=== PATIENT | male | born 1985 | race Caucasian/White ===

== ENCOUNTER 2025-03-27 22:54 | Emergency (ER) | payer OTHER, SELFPAY ==
--- NOTE | ~2025-03-27 | XR_ITS ---
EXAM: XR ankle RT 2V, XR tibia fibula RT 2V DATE: 03/27/2025 23:23 HISTORY: Poss fx . COMPARISON: None available. FINDINGS: Normal mineralization. Oblique fracture of the distal right fibula with lateral and stockroom associate ior displacement, extending to the level of the joint line (Barbour type B). Minimally comminuted mostl y transverse fracture of the medial malleolus with posterior displacement. Comminuted appearing poste rior malleolus fracture with posterior displacement. The talus is posteriorly displaced relative to t he anterior portion of the tibial plafond and remains associated with the posterior malleolus fragmen t, also likely with a component of lateral displacement. Possible small ossific fragment at the fibul ar head which is obscured during anatomy. No lytic or blastic lesion. Joint spaces are maintained. No erosion or periosteal change. Mild soft tissue swelling about the ankle. IMPRESSION: Trimalleolar right ankle fracture with posterolateral tibiotalar dislocation. Possible fi bular head fracture, recommend dedicated radiographs of the knee. Reviewed, dictated and finalized at location [facility]. IMPRESSION: Trimalleolar right ankle fracture with posterolateral tibiotalar di slocation. Possible fibular head fracture, recommend dedicated radiographs of t he knee.
--- NOTE | ~2025-03-27 | XR_ITS ---
Right ankle Technique: AP, oblique, and lateral views were obtained. Clinical History: Post reduction COMPARISON: 03/27/2025 Findings: Acute trimalleolar fractures are again present, involving the distal fibular shaft, distal tibia/medial malleolus, and posterior malleolus. Osseous alignment of the tibiotalar joint is markedl y improved following closed reduction. There is persistent mild displacement of the fibular fracture and lateral view. Soft tissues are otherwise unremarkable. Impression: Status post closed reduction of acute trimalleolar fractures. Osseous alignment at the tibiotalar radha nt is markedly improved from prior exam. Reviewed, dictated and finalized at location . Impression: Status post closed reduction of acute trimalleolar fractures. Osseous alignment at the tibiotalar joint is markedly improved from prior exam.
--- NOTE | ~2025-03-27 | XR_ITS ---
Right Knee Technique: AP, lateral, and oblique views were obtained. Clinical History: Fracture Findings: No fracture or dislocation is seen. Osseous alignment is anatomic. Joint spaces are preserv ed without degenerative or erosive change. Soft tissues are unremarkable. No joint effusion is seen. Impression: Unremarkable right knee radiographs. Reviewed, dictated and finalized at [facility]. Impression: Unremarkable right knee radiographs.
[2025-03-27 23:01] VITALS: BP 143/81; PULSE 116; RESP 17; TEMP 36.5; O2SAT 97
[2025-03-28] MEDS: fentaNYL CITRATE INJ (*CRX) 100 MCG/2 ML VIAL 50 MCG IV PUSH (00:14)
--- NOTE | 2025-03-28 00:23 | ED_ITS ---
HPI - Extremity Injury (Lower) General Chief Complaint: Extremity Injury, Lower Stated Complaint: Injury right ankle Time Seen by Provider: 03/27/25 23:40 Source: patient and other Mode of arrival: ambulatory Limitations: intoxication History of Present Illness HPI Narrative: Patient presents with obvious right ankle injury/deformity. Patient was playing/running with son when he stepped in a hole and tripped, twisting ankle in the process. Admits to alcohol. Related Data Allergies Allergy/AdvReac Type Severity Reaction Status Date / Time No Known Allergies Allergy Unverified 03/27/25 22:55 PMFSH Social History Social History Social History: Has a son Alcohol intake: current Exam 2 Narrative: GENERAL: well-nourished HEAD: Normocephalic, atraumatic. EYES: Non injected, non icteric ENT: Nares clear, no rhinorrhea or epistaxis. Gross auditory acuity intact. NECK: Supple. No meningismus. CHEST: Speaking in full sentences. No respiratory distress. HEART: Regular rate and rhythm. . ABDOMEN: Soft, nondistended. No rigidity or guarding. Not peritoneal EXTREMITIES: Ecchymosis along posterior aspect of right ankle. Obvious right ankle deformity. Palpable DP pulse. No tenderness to palpation of proximal tibia/fibula. SKIN: Warm, dry. NEURO: No focal deficits. Alert and oriented. Answering questions. Slurred speech PSYCH:congruent mood and affect. Course Vital Signs Vital signs: Vital Signs Temperature 97.7 F 03/27/25 23:01 Pulse Rate 116 H 03/27/25 23:01 Respiratory Rate 17 03/27/25 23:01 Blood Pressure 143/81 H 03/27/25 23:01 Pulse Oximetry 97 03/27/25 23:01 Oxygen Delivery Room Air 03/27/25 23:01 Temperature 97.7 F 03/27/25 23:01 Pulse Rate 99 03/28/25 05:41 Respiratory Rate 18 03/28/25 05:41 Blood Pressure 129/69 03/28/25 05:41 Pulse Oximetry 98 03/28/25 05:41 Oxygen Delivery Room Air 03/27/25 23:01 Procedures Orthopedic Joint Reduction Joint #1: Orthopedic Joint Reduction Date: 03/28/25 Time Out Performed: Yes Side: right Joint Reduction Location: ankle Analgesia: other (combination IV opiates and benzodiazepine) Pre-Procedure Neuro Vascular Exam: normal Local Anesthesia: none Technique used: traction/counter-traction and direct manipulation Post-reduction neuro exam: intact Post-reduction vascular: intact Post Reduction X-Ray Obtained: Yes Post Reduction X-Ray Results: reduced Splint Applied: Yes Patient Tolerated Procedure: well and other (patient intoxicated; alert but not consistently following commands (e.g. to hold still after post reduction so he does move ankle requiring direct manipulation and near continuous holding of joint as obtain images) Orthopedic Splinting/Casting Injury #1: Splinting/Casting Date: 03/28/25 Side: right Lower Extremity Injury Location: ankle Lower Extremity Immobilizer: posterior splint and stirrup splint Splint: customized in ED (posterior with stirrup) Pre-Procedure Neuro Vascular Exam: normal Post-Procedure Neuro Vascular Exam: normal Other Orthopedic Equipment: crutches MDM - Extremity Injury (Lower) MDM Narrative Medical decision making narrative: Patient presents with obvious right ankle deformity after tripping in a hole while running outside. In the emergency department he is afebrile with vital signs notable for tachycardia and mild hypertension. Fentanyl ordered for pain. Intoxicated, alc >300. Patient keeps asking if it's a bad sprain. Repeatedly has to be told that it is both fractured and dislocated. Patient had become agitated requiring security while I was seeing another patient pre-reduction, apologizes. Patient given a dose of Dialudid and a benzodiazepine for anaglesia and anxiolysis and joint reduction performed as above. I did discuss patient with on-call orthopedic surgeon Dr Addison who notes that the extent of the fracture posteriorly appears significant and for this reason because this may require alternative surgical approach that is not within his scope, he would recommend that patient be seen by tertiary care trauma. Patient given referral to [facility]; advised to call to make an appointment. Provided disc with images. RN performed crutch training with patient once he is more sober, pain better under control. Patient has as sober ride. Patient provided Rx for analgesic meds including opiates. Differential Diagnosis Differential diagnosis: Likely ankle sprain and strain and ankle fracture Lab Data Attestation: I reviewed the patient's lab results. 03/28/25 00:50 03/28/25 00:50 Labs: Lab Results 06/03/25 Range/Units 00:50 WBC 7.1 (4.5-10.0) K/mm3 RBC 4.24 L (4.6-6.20) M/mm3 Hgb 14.4 (14.0-18.0) g/dL Hct 41.5 L (42.0-52.0) % MCV 97.9 (80-100) fl MCH 34.0 (26-34) pg MCHC 34.7 (32-36) g/dl RDW 12.9 (11.5-14.5) % Plt Count 202 (150-375) k/mm3 MPV 10.9 H (7.4-10.4) fl Immature Gran % (Auto) 0.4 (0-0.5) % Neut % (Auto) 55.6 (45.5-73.1) % Lymph % (Auto) 32.2 (18.3-44.2) % [place] % (Auto) 9.2 H (2.6-8.5) % Eos % (Auto) 2.0 (0-4.4) % Baso % (Auto) 0.6 (0.2-1.2) % Lymph # (Auto) 2.28 (0.9-3.2) K/mm3 [place] # (Auto) 0.7 H (0.1-0.6) K/mm3 Eos # (Auto) 0.1 (0-0.3) K/mm3 Baso # (Auto) 0.0 (0.0-0.1) K/mm3 Abs Immat Gran (auto) 0.03 (0.00-0.031) K/mm3 Absolute Neuts (auto) 3.9 (1.3-6.7) K/mm3 Absolute Nucleated RBC 0.000 (0.0-0.012) K/mm3 Nucleated RBC % 0.0 (0.0-0.2) % PT 12.2 (11.1-14.7) Seconds INR 0.9 APTT 23.4 (22.3-36.8) Seconds Sodium 143 (137-145) mmol/L Potassium 4.4 (3.4-5.0) mmol/L Chloride 110 H (98-107) mmol/L Carbon Dioxide 23 (22-30) mmol/L Anion Gap 10 (4-12) mmol/L BUN 20 (9-20) mg/dL Creatinine 1.04 (0.7-1.3) mg/dL Estim Creat Clear Calc 104 ml/min Estimated GFR > 60 (59 - ) Glucose 115 H (65-110) mg/dL Calcium 8.5 (8.4-10.2) mg/dL Ethyl Alcohol 323 H* (<10) mg/dL Imaging Data Radiologist's impression: Impressions Ankle X-Ray 03/27/25 23:44 IMPRESSION: Trimalleolar right ankle fracture with posterolateral tibiotalar dislocation. Possible fibular head fracture, recommend dedicated radiographs of the knee. Tibia/Fibula X-Ray 03/27/25 23:44 IMPRESSION: Trimalleolar right ankle fracture with posterolateral tibiotalar dislocation. Possible fibular head fracture, recommend dedicated radiographs of the knee. XRay Knee Stat Rad: No acute osseous finding. Consider CT if there is further concern. Post reduction XR Ankle 2 views: Reduced trimalleolar fracture, no tibiotalar dislocation. Discharge Plan Discharge Clinical Impression: Trimalleolar fracture of ankle, closed, Ankle dislocation, Alcohol intoxication with blood alcohol level greater than 0.3 Patient Disposition: Home Condition: Stable Instructions: Antibiotic Form, Ankle Fracture (ED), Crutch Instructions (ED), Narcotic Safety (ED), Alcohol Intoxication (DC), Ankle Dislocation (ED) Additional Instructions: As we discussed, the dislocated ankle joint was reduced (put back in place) but the severity of the remaining ankle bone fractures does mean that you should follow up with the Orthopedic surgery specialists at the trauma clinic through [facility]/Javier below. Call today to see when a follow up appointment should be made for. It is safe to take 4000 mg per day of acetaminophen/Tylenol for pain. For breakthrough pain, a narcotic/opioid medication has also been prescribed. Return to the emergency department any new worsening or unmanaged symptoms. 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
[2025-03-28 00:44] VITALS: PULSE 120; RESP 20; O2SAT 93
[2025-03-28 01:02] LABS: Basophils Percent Auto 0.6 % (0.2-1.2); Eosinophils Absolute Auto 0.1 K/mm3 (0-0.3); Hematocrit 41.5 % (42.0-52.0); Hemoglobin 14.4 g/dL (14.0-18.0); Immature Granulocyte Absolute 0.03 K/mm3 (0.00-0.031); Immature Granulocyte Percent A 0.4 % (0-0.5); Lymphocytes Absolute Auto 2.28 K/mm3 (0.9-3.2); Lymphocytes Percent Auto 32.2 % (18.3-44.2); Mean Corpuscular HGB Conc 34.7 g/dl (32-36); Mean Corpuscular Volume 97.9 fl (80-100); Mean Platelet Volume 10.9 fl (7.4-10.4); Monocytes Absolute Auto 0.7 K/mm3 (0.1-0.6); Monocytes Percent Auto 9.2 % (2.6-8.5); Neutrophils Absolute Auto 3.9 K/mm3 (1.3-6.7); Neutrophils Percent Auto 55.6 % (45.5-73.1); Platelet Count Result 202 k/mm3 (150-375); Red Blood Count 4.24 M/mm3 (4.6-6.20); Red Cell Distribution Width 12.9 % (11.5-14.5); White Blood Count 7.1 K/mm3 (4.5-10.0)
[2025-03-28 01:14] LABS: Anion Gap 10 mmol/L (4-12); Blood Urea Nitrogen 20 mg/dL (9-20); Calcium 8.5 mg/dL (8.4-10.2); Carbon Dioxide 23 mmol/L (22-30); Chloride 110 mmol/L (98-107); Estimated CRCL calculation 104 ml/min; Estimated Glomerular Filt Rate > 60; Glucose 115 mg/dL (65-110); Potassium 4.4 mmol/L (3.4-5.0); Sodium 143 mmol/L (137-145)
[2025-03-28 01:26] LABS: Ethanol 323 mg/dL (<10)
[2025-03-28 01:52] LABS: INR 0.9; Prothrombin Time 12.2 Seconds (11.1-14.7)
[2025-03-28 01:53] LABS: Partial Thromboplastin Time 23.4 Seconds (22.3-36.8)
[2025-03-28] MEDS: SODIUM CHLORIDE 0.9% IV 1,000 ML 999 ML IV CONT (02:18)
[2025-03-28] MEDS: HYDROmorphone HCL INJ (*CRX) 2 MG/ML VIAL 1 MG IV PUSH ×2 (02:19→04:35)
[2025-03-28] MEDS: diazePAM INJ (*CRX) 10 MG/2 ML SYRINGE 5 MG IV PUSH (02:20)
[2025-03-28 02:23] VITALS: PULSE 114; RESP 14; O2SAT 97
--- NOTE | 2025-03-28 02:24 | PC.NURSE ---
Per MD Alex we are going to do a reduction of pt ankle dislocation without sedation. This Rn, MD Alex, and techs Madison dugan are all at bedside. NC o2 ready at bedside if needed. Pt was given 0.5 ml of dilaudid and 1 ml of valium via IV along with fluids. Radiology at bedside. Techs doing short leg posterior splint at this time with ankle in place per radiology confirmation. Pt itals are 107 HR, 17 respirations, and 95% on room air.
[2025-03-28 04:23] VITALS: BP 134/73; PULSE 91; RESP 17; O2SAT 93
--- NOTE | 2025-03-28 05:21 | PC.NURSE ---
RN attempted to do crutch training with pt. Pt understood the concept of non-weight bearing but pt was unsteady while using. RN verbally told pt we will help him get out to cr by wheelchair but we have to know that pt can get around safely at home. RN notified MD Alex.
[2025-03-28 05:41] VITALS: BP 129/69; PULSE 99; RESP 18; O2SAT 98
== END 2025-03-28 06:33 | disposition home or self-care (01) ==
PROVIDERS: Emergency Provider Student in an Organized Health Care Education/Training Program
DX: S82.851A Displaced trimalleolar fracture of right lower leg, initial encounter for closed fracture (principal); F10.129 Alcohol abuse with intoxication, unspecified; Y90.8 Blood alcohol level of 240 mg/100 ml or more; X50.9XXA Other and unspecified overexertion or strenuous movements or postures, initial encounter; W01.0XXA Fall on same level from slipping, tripping and stumbling without subsequent striking against object, initial encounter
CPT/HCPCS: 27818; 36415; 73564; 73590; 73600; 80048; 82077; 85025; 85610; 85730; 96361; 96374; 96375; 96376; 99285; J1171; J3010; J3360; J7030